=== PATIENT | female | born 1990 | race Caucasian/White ===

== ENCOUNTER 2016-11-24 22:37 | Emergency (ER) | payer OTHER ==
[~2016-11-24] VITALS: Ht 160 cm; Wt 81.5 kg
[2016-11-24 22:42] VITALS: Ht 160 cm; Wt 81.5 kg
[2016-11-24] MEDS ORDERED: KETOROLAC 60 MG INJ IM STA (23:20)
--- NOTE | 2016-11-24 23:31 | ERD ---
ER Documentation Chief Complaint Date/Time DATE: 11/24/16 TIME: 23:28 Chief Complaint right flank pain that started today. HPI 26-year-old female presents here in emergency department for complaints of lower back pain that started tonight, patient was sitting down in the toilet, suddenly stood up, started to have the pain in the right lower back, it radiated to the right lower leg, sharp pain, 8/10 scale, is worse upon movement. Patient did not take any medication for pain. Patient denies any numbness or tingling. Patient denies any fever or chills. Patient denies any hematuria or dysuria. Patient denies any vomiting. ROS All systems reviewed and are negative except as per history of present illness. Medications Home Meds Reported Medications [none] Unknown Strength No Conflict Check 11/24/16 Allergies Allergies: Coded Allergies: No Known Allergy (Unverified , 11/24/16) PMhx/Soc Medical and Surgical Hx: pt denies Medical Hx, pt denies Surgical Hx Hx Alcohol Use: No Hx Substance Use: No Hx Tobacco Use: No Smoking Status: Never smoker FmHx Family History: No coronary disease, No diabetes, No other Physical Exam Vitals Vital Signs Date Time Temp Pulse Resp B/P Pulse Ox O2 Delivery O2 Flow Rate FiO2 11/24/16 22:42 97.4 69 18 159/94 97 Physical Exam GENERAL: The patient is well developed and appropriate for usual state of health, in no apparent distress. CHEST: Clear to auscultation bilaterally. There are no rales, wheezes or rhonchi. HEART: Regular rate and rhythm. No murmurs, clicks, rubs or gallops. No S3 or S4. ABDOMEN: Soft, nontender and nondistended. Good bowel sounds. No rebound or guarding. No gross peritonitis. No gross organomegaly or masses. No Pedroza sign or McBurney point tenderness. BACK: No midline or flank tenderness. Muscle spasms noted in the right paraspinal aspect of the right lumbar spine, with positive right straight leg test. EXTREMITIES: Equal pulses bilaterally. There is no peripheral clubbing, cyanosis or edema. No focal swelling or erythema. Full range of motion. Grossly neurovascularly intact. NEURO: Alert and oriented. Cranial nerves 2-12 intact. Motor strength in all 4 extremities with 5/5 strength. Sensation grossly intact. Normal speech and gait. SKIN: There is no apparent rash or petechia. The skin is warm and dry. HEMATOLOGIC AND LYMPHATIC: There is no evidence of excessive bruising or lymphedema. No gross cervical, axillary, or inguinal lymphadenopathy. Results 24 hrs Laboratory Tests Test 11/24/16 23:49 Bedside Urine pH (LAB) 5.5 Bedside Urine Protein (LAB) Negative Bedside Urine Glucose (UA) Negative Bedside Urine Ketones (LAB) Negative Bedside Urine Blood Trace-lysed Bedside Urine Nitrite (LAB) Negative Bedside Urine Leukocyte Esterase (L Negative Current Medications Medications (Trade) Dose Ordered Sig/Ludy Route PRN Reason Start Time Stop Time Status Last Admin Dose Admin Ketorolac Tromethamine (Toradol) 60 mg ONCE STAT IM 11/24/16 23:20 11/24/16 23:22 DC 11/24/16 23:47 Patient was given medication for pain here in emergency department, after treatment, patient verbalized feeling much better. Patient's pain is improved. PROCEDURE: CT Lumbar Spine. CLINICAL INDICATION: Back pain TECHNIQUE: Noncontrast CT of the lumbar spine was performed with multiplanar reformatted images generated from the axial acquired data. The administered radiation dose was CTDI vol = 25 mGy, DLP = 601 mGy-cm. COMPARISON: There are no similar studies submitted for comparison. FINDINGS: SCOLIOSIS: No significant scoliosis. LORDOSIS: Within normal limits. VERTEBRAL BODY HEIGHTS: Maintained. ALLIGNMENT: Within normal limits. OSSEOUS STRUCTURES: There is no destructive osseous lesion.There is no acute fracture. There is sacralization of the left L5 transverse process. DISCS: The discs are normal in height. T12-L1 : There is no disc herniation, spinal canal, or foraminal stenosis. L1-L2 : There is no disc herniation, spinal canal, or foraminal stenosis. L2-L3 : There is no disc herniation, spinal canal, or foraminal stenosis. L3-L4 : There is mild diffuse disk bulge without significant spinal canal or neural foraminal narrowing. L4-L5 : There is mild diffuse disk bulge with small central disk protrusion resulting in the mild spinal canal and bilateral neural foraminal narrowing. L5-S1 : There is no disc herniation, spinal canal, or foraminal stenosis. SACRUM: The sacroiliac joints are intact. OTHER: There is mild right hydronephrosis and hydroureter with some mild periureteral fat infiltrative changes. No definite urinary calculi are seen although the distal ureter is not visualized. IMPRESSION: No acute fracture or subluxation. Mild lumbar spondylotic changes as described above. Mild right hydronephrosis. CT scan of the abdomen and pelvis without contrast is recommended for further evaluation. RPTAT: HIKT .Celestine Santoro MD, MD Date Time Electronically viewed and signed by .Celestine Santoro MD, MD on 11/25/2016 00:09 .T/ CC: DOROTHY MARTINEZ [employer]ATOR Procedures/MDM Medical Decision Making: Patient's pain is most likely consistent with a back strain, most active from degenerative disc disease also, there is right hydronephrosis with hydroureter noted, possible renal colic, there is trace of blood in the urine but no jesu hematuria, no symptoms of any pyelonephritis. There is no suspicion for neurovascular compromise. Patient has intact sensation and circulation of the affected extremity and distal extremities. No incontinence, no suspicion for cauda equina syndrome, no saddle anesthesia, no symptoms of any acute bacterial infection, no symptoms of any perirectal abscesses, pilonidal cyst.There is low suspicion for septic arthritis. Patient does not have any fever. No symptoms of any aortic dissection or aortic aneurysm. Radiology exam does not show any fractures or dislocation, shows degenerative disc disease and possible right hydronephrosis and hydroureter. Disposition: Home. Patient is given prescription for ibuprofen for mild to moderate pain, Carville for severe pain, Flexeril for muscle spasm, Pyridium. Patient was advised to avoid heavy lifting , apply warm compresses on affected area. Patient was advised that if symptoms are worse, numbness, tingling, high fever, unable to move joint, worsening symptoms, to return to emergency department immediately. Otherwise, patient is advised to follow up with the primary care doctor in 5-7 days for reevaluation of symptoms. Disclaimer: Inadvertent spelling and grammatical errors are likely due to EHR/ dictation software use and do not reflect on the overall quality of patient care. Also, please note that the electronic time recorded on this note does not necessarily reflect the actual time of the patient encounter. Departure Diagnosis: Primary Impression: Back pain Back pain location: low back pain Chronicity: acute Back pain laterality: right Sciatica presence: with sciatica Sciatica laterality: sciatica of right side Qualified Code: M54.41 - Acute right-sided low back pain with right -sided sciatica Additional Impressions: Renal colic on right side Degenerative disc disease Spinal region: lumbosacral Qualified Code: M51.37 - Degeneration of intervertebral disc of lumbosacral region Condition: Stable Patient Instructions: Back Pain W/ Sciatica, Degenerative Disk Disease, Kidney Stone W/ Colic Additional Instructions: Patient is given prescription for ibuprofen for mild to moderate pain, Carville for severe pain, Flexeril for muscle spasm. Patient was advised to avoid heavy lifting , apply warm compresses on affected area. Patient was advised that if symptoms are worse, numbness, tingling, high fever, unable to move joint, worsening symptoms, to return to emergency department immediately. Otherwise, patient is advised to follow up with the primary care doctor in 5-7 days for reevaluation of symptoms. DOROTHY MARTINEZ NP Nov 24, 2016 23:31
[2016-11-24 23:43] LABS: URINE BLOOD (Dip) POC Trace-lysed (NEGATIVE)
--- NOTE | 2016-11-25 00:09 | RADRPT ---
PROCEDURE: CT Lumbar Spine. CLINICAL INDICATION: Back pain TECHNIQUE: Noncontrast CT of the lumbar spine was performed with multiplanar reformatted images gen erated from the axial acquired data. The administered radiation dose was CTDI vol = 25 mGy, DLP = 6 01 mGy-cm. COMPARISON: There are no similar studies submitted for comparison. FINDINGS: SCOLIOSIS: No significant scoliosis. LORDOSIS: Within normal limits. VERTEBRAL BODY HEIGHTS: Maintained. ALLIGNMENT: Within normal limits. OSSEOUS STRUCTURES: There is no destructive osseous lesion.There is no acute fracture. There is sacr alization of the left L5 transverse process. DISCS: The discs are normal in height. T12-L1 : There is no disc herniation, spinal canal, or foraminal stenosis. L1-L2 : There is no disc herniation, spinal canal, or foraminal stenosis. L2-L3 : There is no disc herniation, spinal canal, or foraminal stenosis. L3-L4 : There is mild diffuse disk bulge without significant spinal canal or neural foraminal narrow ing. L4-L5 : There is mild diffuse disk bulge with small central disk protrusion resulting in the mild sp inal canal and bilateral neural foraminal narrowing. L5-S1 : There is no disc herniation, spinal canal, or foraminal stenosis. SACRUM: The sacroiliac joints are intact. OTHER: There is mild right hydronephrosis and hydroureter with some mild periureteral fat infiltrati ve changes. No definite urinary calculi are seen although the distal ureter is not visualized. IMPRESSION: No acute fracture or subluxation. Mild lumbar spondylotic changes as described above. Mild right hydronephrosis. CT scan of the abdomen and pelvis without contrast is recommended for fu rther evaluation. RPTAT: HIKT .Celestine Santoro MD, MD Date Time Electronically viewed and signed by .Celestine Santoro MD, on 11/25/2016 00:09 .T/
[2016-11-25] MEDS ORDERED: PHEN-538 PO (00:20)
[2016-11-25] MEDS ORDERED: HYDR-906 PO (00:20)
[2016-11-25] MEDS ORDERED: IBUP-1542 PO (00:20)
[2016-11-25] MEDS ORDERED: CYCL-319 PO (00:20)
== END 2016-11-25 00:34 | disposition home or self-care (01) ==
LOC: FTE 22:37
DX: M54.41 Lumbago with sciatica, right side (principal); N23 Unspecified renal colic; M51.37 Other intervertebral disc degeneration, lumbosacral region
CPT/HCPCS: 72131; 81003; 96372; J1885; Z7502